=== PATIENT | female | born 1965 | race Caucasian/White ===

== ENCOUNTER 2016-11-06 01:29 | Emergency (ER) | payer BC ==
[2016-11-06] MEDS ORDERED: methylPREDNISolone Sodium Succinate 125 MG/2 ML SDV IVPUSH ONE (01:44)
[2016-11-06] MEDS ORDERED: Albuterol/Ipratropium 3.0-0.5 MG/3 ML Neb Soln NEB ONE (01:44)
--- NOTE | 2016-11-06 01:52 | EDM.PDOC ---
ED HISTORY OF PRESENT ILLNESS - General Stated Complaint: TROUBLE BREATHING Time Seen by Provider: 11/06/16 01:29 Source: Reports: Patient, Family History Limitations: Reports: Respiratory distress - History of Present Illness INITIAL COMMENTS - FREE TEXT/NARRATIVE: 51 years old w f with a h/o asthma came to the ed this am due to worsening of SOB. Pt had similar symptoms in the past and was trying multiple different inhalers without help. Pt denied H/O pulmonary emboli.She feels a "chest fullness" denied calf pain, however. Pt does not smoke and is not exposed to smokers. 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 Denies exposure to environmental hazard.BP on arrival was 175/89 (too high for her, she said) Symptom Onset Date: 11/05/16 Symptom Onset Time: 21:00 Timing/Duration: Reports: Hour(s):, Getting worse, Gradual onset Severity: mild Location, General: Reports: chest Quality: Reports: Pressure, Same as previous episode, Other (SOB) Improves with: Reports: Medication Worsens with: Reports: Immobilization, Rest Associated Symptoms: Reports: chest pain, cough, shortness of breath Treatment(s) SAND SYSTEM OPERATOR: Reports: Other (see below) (inhalers) - Related Data Allergies/ADRs: Allergies Allergy/AdvReac Type Severity Reaction Status Date / Time erythromycin base Allergy Nausea Verified 11/06/16 02:59 [From [facility] Home Meds: Home Meds Albuterol Sulfate 2.5 mg IH Q4HR PRN #1 box 11/06/16 [Rx] Albuterol [IJD: Ventolin HFA] 2 puff INH Q4HR PRN #1 inh 11/06/16 [Rx] predniSONE 20 mg PO DAILY #4 tablet 11/06/16 [Rx] ED ROS GENERAL - Review of Systems Review Of Systems: See Below Constitutional: Reports: no symptoms HEENT: Reports: No symptoms Respiratory: Reports: Shortness of Breath Cardiovascular: Reports: Chest pain Endocrine: Reports: no symptoms GI/Abdominal: Reports: No symptoms : Reports: no symptoms Musculoskeletal: Reports: no symptoms Skin: Reports: no symptoms Neurological: Reports: No Symptoms Psychiatric: Reports: No symptoms Hematologic/Lymphatic: Reports: no symptoms Immunologic: Reports: no symptoms ED EXAM, GENERAL - Physical Exam Exam: See Below Exam Limited By: Respiratory distress General Appearance: alert, WD/WN, anxious, mild distress Eye Exam: bilateral eye: normal inspection Ears: normal external exam Ear Exam: bilateral ear: auricle normal Nose: normal inspection, normal mucosa, no blood Throat/Mouth: Normal inspection, Normal lips, Normal teeth, Normal gums Head: atraumatic, normocephalic Neck: normal inspection, supple, non-tender, full range of motion Respiratory/Chest: respiratory distress, rhonchi, wheezing Cardiovascular: normal peripheral pulses, regular rate, rhythm, no edema, no gallop Peripheral Pulses: 2+: femoral (L), femoral (R) GI/Abdominal: normal bowel sounds, soft, non tender, no organomegaly (Female) Exam: Deferred Rectal (Female) Exam: Deferred Back Exam: normal inspection, full range of motion Extremities: normal inspection, normal range of motion, non-tender, no pedal edema, normal capillary refill Neurological: alert, oriented, CN II-XII intact, normal cognition, normal gait Psychiatric: normal affect, normal mood Skin Exam: Warm, Dry, Intact, Normal color Lymphatic: no adenopathy EKG INTERPRETATION EKG Date: 11/06/16 Time: 02:40 Rhythm: NSR Rate (beats/min): 84 [place]: normal P-wave: present QRS: normal ST-T: normal QT: normal Comparison: NA - no prior EKG Course - Vital Signs Text/Narrative:: 51 years old w f with a h/o asthma came to the ed this am due to worsening of SOB. Pt had similar symptoms in the past and was trying multiple different inhalers without help. Pt denied H/O pulmonary emboli.She feels a "chest fullness" denied calf pain, however. Pt does not smoke and is not exposed to smokers. 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 Denies exposure to environmental hazard. Pt is finishing her tomorrow her 7 days course of 40 mg of predison. PE: Exp. wheezes. labs: WBC 10K Troponin 0.01 D Dimer <100 BUN/CR 25.5 Lactic acid 2.6 ( nonspecific) Imaging: Not indicated. Impression: Asthma, elevated Lactic acid with nl WBC. Dehydration Tx: Duoneb, Solumedrol. Reexam: Improved Plan: D/C with instructions Last Recorded V/S: Last Vital Signs Temp 36.7 C 11/06/16 01:30 Pulse 76 11/06/16 01:30 Resp 20 11/06/16 01:30 BP 171/94 H 11/06/16 01:30 Pulse Ox 100 11/06/16 01:45 - Orders/Labs/Meds Orders: Active Orders 24 hr Category Date Time Status EKG Documentation Completion [RC] ASDIRECTED Care 11/06/16 01:55 Active RT Aerosol Therapy [RC] ASDIRECTED Care 11/06/16 01:45 Active Supplemental O2 [Oxygen Therapy, ED] [RC] ASDIRECTED Care 11/06/16 02:06 Active EKG 12 Lead [EK] Routine Ther 11/06/16 01:55 Ordered Labs: Laboratory Tests 11/06/16 11/06/16 11/06/16 Range/Units 02:00 02:00 02:00 WBC 10.9 (4.5-12.0) X10-3/uL RBC 4.88 (3.23-5.20) x10(6)uL Hgb 13.2 (11.5-15.5) g/dL Hct 40.0 (30.0-51.3) % MCV 82.0 (80-96) fL MCH 27.0 L (27.7-33.6) pg MCHC 32.9 (32.2-35.4) g/dL RDW 13.9 (11.5-15.5) % Plt Count 357 (125-369) X10(3)uL MPV 7.9 (7.4-10.4) fL Neut % (Auto) 79.0 (46-82) % Lymph % (Auto) 16.3 (13-37) % [place] % (Auto) 2.6 L (4-12) % Eos % (Auto) 0 L (1.0-5.0) % Baso % (Auto) 2 (0-2) % Neut # (Auto) 8.6 H (1.6-8.3) # Lymph # (Auto) 1.8 (0.6-5.0) # [place] # (Auto) 0.3 (0.0-1.3) # Eos # (Auto) 0.0 (0.0-0.8) # Baso # (Auto) 0.2 (0.0-0.2) # D-Dimer, Quantitative < 100 L (100-400) ng/mL Sodium 136 (135-145) mmol/L Potassium 4.0 (3.5-5.3) mmol/L Chloride 101 (100-110) mmol/L Carbon Dioxide 24 (23-29) mmol/L BUN 20 (5-20) mg/dL Creatinine 0.8 (0.6-1.3) mg/dL Est Cr Clr Drug Dosing TNP Estimated GFR (MDRD) > 60 (>60) BUN/Creatinine Ratio 25.0 H (9-20) Glucose 170 H (80-116) mg/dL Lactic Acid (0.5-2.2) mmol/L Calcium 9.0 (8.6-10.2) mg/dL Troponin I (0.02-0.06) NG/ML 11/06/16 11/06/16 Range/Units 02:00 02:00 WBC (4.5-12.0) X10-3/uL RBC (3.23-5.20) x10(6)uL Hgb (11.5-15.5) g/dL Hct (30.0-51.3) % MCV (80-96) fL MCH (27.7-33.6) pg MCHC (32.2-35.4) g/dL RDW (11.5-15.5) % Plt Count (125-369) X10(3)uL MPV (7.4-10.4) fL Neut % (Auto) (46-82) % Lymph % (Auto) (13-37) % [place] % (Auto) (4-12) % Eos % (Auto) (1.0-5.0) % Baso % (Auto) (0-2) % Neut # (Auto) (1.6-8.3) # Lymph # (Auto) (0.6-5.0) # [place] # (Auto) (0.0-1.3) # Eos # (Auto) (0.0-0.8) # Baso # (Auto) (0.0-0.2) # D-Dimer, Quantitative (100-400) ng/mL Sodium (135-145) mmol/L Potassium (3.5-5.3) mmol/L Chloride (100-110) mmol/L Carbon Dioxide (23-29) mmol/L BUN (5-20) mg/dL Creatinine (0.6-1.3) mg/dL Est Cr Clr Drug Dosing Estimated GFR (MDRD) (>60) BUN/Creatinine Ratio (9-20) Glucose (80-116) mg/dL Lactic Acid 2.6 H (0.5-2.2) mmol/L Calcium (8.6-10.2) mg/dL Troponin I < 0.01 L (0.02-0.06) NG/ML Meds: Medications Discontinued Medications Generic Name Dose Route Start Last Admin Trade Name Freq PRN Reason Stop Dose Admin Albuterol/Ipratropium 3 ml 11/06/16 01:44 11/06/16 02:06 Duoneb 3.0-0.5 Mg/3 Ml NEB 11/06/16 01:45 3 ml ONETIME ONE Administration Methylprednisolone Sodium Succinate 125 mg 11/06/16 01:44 11/06/16 02:08 Solu-Medrol IVPUSH 11/06/16 01:45 125 mg ONETIME ONE Administration Departure - Departure Time of Disposition: 02:45 Disposition: Home, Self-Care 01 Condition: good Clinical Impression: Dehydration Asthma Qualifiers: Asthma severity: mild intermittent Asthma complication type: uncomplicated Qualified Code(s): J45.20 - Mild intermittent asthma, uncomplicated Prescriptions: Albuterol [IJD: Ventolin HFA] 2 puff INH Q4HR PRN #1 inh PRN Reason: sob Albuterol Sulfate 2.5 mg IH Q4HR PRN #1 box PRN Reason: sob predniSONE 20 mg PO DAILY #4 tablet Referrals: Peter Greco MD [Primary Care Provider] - Additional Instructions: Please increase water intake. Please take 4 days 20mg Prednison orally after completion of your previous prednison meds. Continue using Albuterol inhalers, please f/u with your PMD/automation controls specialist, please come back to the ED if your symptoms worsen acutely. - My Orders Last 24 Hours: My Active Orders 11/06/16 01:45 RT Aerosol Therapy [RC] ASDIRECTED 11/06/16 01:55 EKG Documentation Completion [RC] ASDIRECTED EKG 12 Lead [EK] Routine 11/06/16 02:06 Supplemental O2 [Oxygen Therapy, ED] [RC] ASDIRECTED - Assessment/Plan Last 24 Hours: My Active Orders 11/06/16 01:45 RT Aerosol Therapy [RC] ASDIRECTED 11/06/16 01:55 EKG Documentation Completion [RC] ASDIRECTED EKG 12 Lead [EK] Routine 11/06/16 02:06 Supplemental O2 [Oxygen Therapy, ED] [RC] ASDIRECTED
[2016-11-06 02:35] VITALS: BP 171/94
== END 2016-11-06 03:25 | disposition home or self-care (01) ==
LOC: FB.ED 01:29
DX: J45.20 Mild intermittent asthma, uncomplicated (principal); E86.0 Dehydration; Z88.1 Allergy status to other antibiotic agents; Z79.899 Other long term (current) drug therapy
CPT/HCPCS: 36415; 80048; 83605; 84484; 85025; 85379; 93005; 96374; 99283; J2930; J7620; 94640